=== PATIENT | female | born 1990 | race Caucasian/White ===

== ENCOUNTER 2018-11-25 18:36 | Emergency (ER) | payer OTHER, SELFPAY ==
[2018-11-25 18:38] VITALS: BP 170/106; PULSE 94; RESP 20; TEMP 36.6; O2SAT 100; BMI 28.1
--- NOTE | 2018-11-25 19:53 | ED_ITS ---
HPI - Extremity Injury (Upper) <ABIGAIL Zaman - Last Filed: 11/25/18 22:32> General Chief Complaint: Extremity Injury, Upper Stated Complaint: SPLINTER RIGHT HAND Time Seen by Provider: 11/25/18 18:45 Source: patient Mode of arrival: ambulatory Limitations: no limitations History of Present Illness HPI narrative: 28-year-old healthy female that is in everyday smoker here for complaint of pain to her right hand. She states that she had a sliver to her right middle finger a couple of days ago and she woke up today was that she has swelling and redness to her fingers and to her right thumb. She reports that the redness and swelling has resolved somewhat since this morning. She denies any fevers. She states she has had a small amount of a purulent drainage from the splinter area. She states that the splinter might or might not be there at this point as she cannot see it. She denies any other concerns or complaints at this timeframe. Related Data Previous Rx's Medication Instructions Recorded clindamycin HCl 300 mg PO QID #28 cap 11/25/18 Allergies Allergy/AdvReac Type Severity Reaction Status Date / Time No Known Drug Allergies Allergy Verified 11/25/18 19:56 Review of Systems <ABIGAIL Zaman - Last Filed: 11/25/18 22:32> Eyes Denies change in vision, Denies eye discharge, Denies irritation and Denies loss of vision ENT Ears, Nose, Mouth, and Throat: Denies change in voice, Denies neck pain and Denies sore throat Cardiovascular Denies chest pain, Denies irregular heart rhythm, Denies lightheadedness, Denies palpitations, Denies dyspnea, Denies dyspnea on exertion and Denies orthopnea Respiratory Denies cough, Denies dyspnea, Denies dyspnea on exertion and Denies wheezing Gastrointestinal Gastrointestinal: Denies abdominal pain, Denies change in bowel habits, Denies diarrhea, Denies nausea and Denies vomiting Genitourinary Denies hematuria, Denies flank pain, Denies urinary incontinence and Denies urinary urgency Musculoskeletal Denies neck pain Comments: Redness and swelling to right hand Integumentary/Breasts Denies pruritus, Denies erythema, Denies rash and Denies wounds Neurologic Denies confusion and Denies loss of vision Psychiatric Denies anxiety, Denies confusion, Denies depression, Denies homicidal ideation and Denies suicidal ideation Endocrine Denies palpitations Hematologic/Lymphatic Denies easy bruising Allergic/Immunologic Denies wheezing Exam <ABIGAIL Zaman - Last Filed: 11/25/18 22:32> Initial Vital Signs Initial Vital Signs: Vital Signs Temperature 97.8 F 11/25/18 18:38 Pulse Rate 94 H 11/25/18 18:38 Respiratory Rate 20 11/25/18 18:38 Blood Pressure 170/106 H 11/25/18 18:38 Pulse Oximetry 100 11/25/18 18:38 Const General: cooperative and well developed Nutritional Appearance: well nourished Orientation: alert, awake, oriented x3 and not confused HENNV Mouth: oral mucosae normal and moist mucous membranes Eyes Conjunctivae: conjunctivae normal Sclera: sclerae normal Pupils: PERRL EOM: EOM intact bilaterally Neck Neck: midline deformity Resp Effort & Inspection: normal respiratory effort, able to speak in complete sentences, no respiratory distress and no use of accessory muscles Auscultation: clear to auscultation bilaterally, no rales, no rhonchi and no wheezes Cardio Rate: regular rate Rhythm: regular rhythm Heart Sounds: no click, no gallops, no murmurs and no rubs Pulses: normal peripheral pulses Back/Spine/Pelvis Back: No CVA tenderness Cervical Spine: cervical ROM normal and No pain with cervical ROM Thoracic/Lumbar Spine: thoracic and lumbar spine normal to inspection Skin General: no rashes or lesions noted, No jaundice and No petechiae Neuro General: alert, oriented x3, gait normal and no focal motor deficits Speech: speech normal Extrem Other: No significant erythema or swelling is seen to the right hand at this timeframe. 3 mm puncture wound to the right distal middle finger no splinter is appreciated on exam. Distal CMS is intact. Full range of motion of the right hand. Distal cap refill less than 2 sec. <Taylor Valdez DO - Last Filed: 11/26/18 00:07> Initial Vital Signs Initial Vital Signs: Vital Signs Temperature 97.8 F 11/25/18 18:38 Pulse Rate 94 H 11/25/18 18:38 Respiratory Rate 20 11/25/18 18:38 Blood Pressure 170/106 H 11/25/18 18:38 Pulse Oximetry 100 11/25/18 18:38 Course <ABIGAIL Zaman - Last Filed: 11/25/18 22:32> Orders Ordered: Discontinued Medications Diphtheria/Tetanus/Acell Pertussis (Adacel) 0.5 ml IM .ONCE ONE Stop: 11/25/18 19:49 Last Admin: 11/25/18 19:54 Dose: 0.5 ml Vital Signs - 8 hr 11/25/18 18:38 11/25/18 20:04 Temperature 97.8 F Pulse Rate 94 H 82 Respiratory Rate 20 18 Blood Pressure 170/106 H 155/88 H Pulse Oximetry 100 99 <Taylor Valdez DO - Last Filed: 11/26/18 00:07> Orders Ordered: Discontinued Medications Diphtheria/Tetanus/Acell Pertussis (Adacel) 0.5 ml IM .ONCE ONE Stop: 11/25/18 19:49 Last Admin: 11/25/18 19:54 Dose: 0.5 ml Vital Signs - 8 hr 11/25/18 18:38 11/25/18 20:04 Temperature 97.8 F Pulse Rate 94 H 82 Respiratory Rate 20 18 Blood Pressure 170/106 H 155/88 H Pulse Oximetry 100 99 MDM - Extremity Injury (Upper) <ABIGAIL Zaman - Last Filed: 11/25/18 22:32> MDM Narrative Medical decision making narrative: Patient states no recent tetanus shot last tetanus was when she was a child. Her tetanus is updated in the emergency room today. No significant infection appreciated on exam at this time however due to patient's subjective of red swollen painful hands this morning will empirically treat for infection to the right hand status post her sliver with clindamycin. Follow up with primary care provider in the next few days for re- evaluation to ensure symptoms are resolving. Use [id number] Tylenol or Motrin as needed for any discomfort. For any worsening symptoms return to the emergency room. Discharge Plan Departure Patient Disposition: Home Clinical Impression: Infected sliver of skin of finger Discharge Date/Time: 11/25/18 20:05 Interventions: ED Discharge Assessment Last Done: 11/25/18 20:04 Instructions: DI for Hand Pain Activity Restrictions/Additional Instructions: Right hand did not appear to be infected on exam. No sliver was appreciated on exam. However due to reported purulent drainage and redness to the hand an antibiotic called clindamycin is prescribed use as directed. Use over-the- counter ibuprofen as needed for any discomfort. Dress wound daily with bacitracin dressing until healed. Follow up with primary care provider next few days for re-evaluation. Return emergency room for any worsening symptoms. Prescriptions: New clindamycin HCl 300 mg capsule 300 mg PO QID Qty: 28 RF: 0 Referrals: [facility] [Provider Group] <Taylor Valdez DO - Last Filed: 11/26/18 00:07> Cosign ED Attending Cosignature Attestation: I was immediately available in the department for consultation. This documentation has been reviewed and I agree with assessment and plan. Supervised by Taylor Valdez DO
[2018-11-25] MEDS: TET,DIPH,PERTUSS(ACELL),VAC/PF 0.5 ML SYRINGE IM (19:54)
[2018-11-25 20:04] VITALS: BP 155/88; PULSE 82; RESP 18; O2SAT 99
== END 2018-11-25 20:05 | disposition home or self-care (01) ==
PROVIDERS: Emergency Provider Nurse Practitioner Family
DX: S60.459A Superficial foreign body of unspecified finger, initial encounter (principal); L08.9 Local infection of the skin and subcutaneous tissue, unspecified
CPT/HCPCS: 90471; 99282; 99283; 90715

== ENCOUNTER → 2021-11-25 08:26 | Outpatient (CLI) | payer OTHER, MEDICAID, SELFPAY ==
[2021-11-25 19:30] LABS: Alanine Aminotransferase 27 IU/L (<35); Albumin 4.2 g/dL (3.5-5.0); Albumin Globulin Ratio 1.4 (1.0-2.8); Alkaline Phosphatase 24 U/L (38-126); Aspartate Aminotransferase 28 IU/L (14-36); BUN Creatinine Ratio 15.5 (6-22); Bilirubin Total 0.7 mg/dL (0.2-1.3); Blood Urea Nitrogen 13 mg/dL (7-17); Calcium 9.7 mg/dL (8.4-10.2); Carbon Dioxide 31 mmol/L (22-32); Chloride 100 mmol/L (98-107); Estimated Glomerular Filt Rate > 60.0 mL/min (>60); Globulin 2.9 g/dL (1.7-4.1); Glucose 95 mg/dL (70-100); HEMOLYSIS < 15 (0-50); Potassium 4.1 mmol/L (3.4-5.1); Sodium 135 mmol/L (137-145); Total Protein 7.1 g/dL (6.3-8.2)
== END ==
PROVIDERS: Family Provider Family Medicine; PCP Physician Assistant; Referring Provider Physician Assistant; Visit Provider Physician Assistant
DX: I10 Essential (primary) hypertension (principal)
CPT/HCPCS: 80053; 84443

== ENCOUNTER 2022-07-07 17:02 | Emergency (ER) | payer OTHER, SELFPAY ==
[2022-07-07 17:05] VITALS: BP 168/97; PULSE 104; RESP 16; TEMP 36.9; O2SAT 100; BMI 33.0
--- NOTE | 2022-07-07 17:12 | DI.CT.S_ITS ---
PROCEDURE: CT HEAD/BRAIN WO CON INDICATIONS: loss of peripheral vision on R side of R eye x 3 days TECHNIQUE: Noncontrast 4.5 mm thick angled axial sections acquired from the foramen magnum to the vertex, with coronal and sagittal reformats. For radiation dose reduction, the following was used: automated exposure control, adjustment of mA and/or kV according to patient size. COMPARISON: None. FINDINGS: Image quality: Excellent. CSF spaces: Basal cisterns are patent. No extra-axial fluid collections. Ventricles are normal in size and shape. Brain: No midline shift. No intracranial masses or hemorrhage. Dunn-white matter interface is normal. Skull and face: Calvarium and visualized facial bones are intact, without suspicious lesions. Sinuses: Visualized sinuses and mastoids are clear. IMPRESSION: Normal CT of the brain Approved by: Jose Craft M.D. on 07/07/2022 at 16:57
--- NOTE | 2022-07-07 17:28 | PC.NURSE ---
Pt reports recently going through detox and finishing at a facility on Wednesday. Pt woke up on Wednesday with loss of peripheral vision in her right eye. No change since Wednesday. Pt reports cardiac arrest in 2013 due to drug overdose.
[2022-07-07 17:30] VITALS: PULSE 99; RESP 22; O2SAT 100
[2022-07-07 17:31] VITALS: BP 157/95; PULSE 99; RESP 15; O2SAT 100
[2022-07-07 18:00] VITALS: PULSE 98; O2SAT 100
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
[2022-07-07 18:40] LABS: Add Manual Diff / Slide Review NO; Basophils Absolute Auto 0 /uL (0-100); Basophils Percent Auto 0.4 % (0-2); Eosinophils Absolute Auto 200 /uL (0-450); Eosinophils Percent Auto 2.3 % (2-4); Hematocrit 40.2 % (36-46); Hemoglobin 14.3 g/dL (12.0-16.0); Lymphocytes Absolute Auto 1800 /uL (1100-4500); Lymphocytes Percent Auto 27.7 % (25-40); Mean Corpuscular HGB Conc 35.7 % (30-36); Mean Corpuscular Hemoglobin 31.5 PG (26-34); Mean Corpuscular Volume 88.1 fL (80-100); Monocytes Absolute Auto 400 /uL (0-900); Monocytes Percent Auto 6.9 % (3-14); Neutrophils Absolute Auto 4100 /uL (1500-7000); Neutrophils Percent Auto 62.7 % (50-75); Platelet Count 270 X10^3/uL (150-400); Red Blood Cell Count 4.56 X10^6/uL (4.0-5.2); Red Cell Distribution Width 12.6 % (11.6-14.8); White Blood Cell Count 6.5 X10^3/uL (4.5-11.0)
[2022-07-07 18:46] LABS: INR 1.1 (0.9-1.3); Prothrombin Time 12.8 SECONDS (10.1-12.7)
[2022-07-07 18:49] LABS: PTT Partial Thromboplastin Tim 22 SECONDS (26-36)
[2022-07-07 19:13] LABS: UR Morphine/Opiate cutoff 300 Negative (Negative); Ur Creatinine Normal (Normal); Ur Specific Gravity Normal (Normal); Urine Cocaine Negative (Negative); Urine Tetrahydrocannabinol Positive (Negative); Urine pH Normal (Normal)
[2022-07-07 19:14] LABS: Urine Amphetamines Positive (Negative); Urine Barbiturates Negative (Negative); Urine Benzodiazepines Negative (Negative); Urine MDMA Positive (Negative); Urine Methadone Negative (Negative); Urine Methamphetamines Positive (Negative); Urine Oxycodone Negative (Negative); Urine Phencyclidine Negative (Negative); Urine Tricyclic Antidepressant Negative (Negative)
[2022-07-07 19:16] LABS: Bacteria Urine Many (>30); Culture Indicated Urine Cult Not Indicated; RBC Urine None Seen (0-5/HPF); Squamous Epithelial Cell Urine 0-1 /HPF (0-5/HPF); WBC Urine 0-1/HPF (0-5/HPF)
[2022-07-07 19:57] LABS: COVID19 -Nasal RAPID Negative (Negative)
[2022-07-07 20:03] LABS: Alanine Aminotransferase 26 IU/L (<35); Albumin Globulin Ratio 1.3 (1.0-2.8); Aspartate Aminotransferase 23 IU/L (14-36); BUN Creatinine Ratio 20.7 (6-22); Bilirubin Total 0.5 mg/dL (0.2-1.3); Blood Urea Nitrogen 17 mg/dL (7-17); Calcium 8.9 mg/dL (8.4-10.2); Carbon Dioxide 30 mmol/L (22-32); Chloride 102 mmol/L (98-107); Creatine Kinase 82 U/L (30-135); Estimated Glomerular Filt Rate > 60 mL/min (>60); Glucose 101 mg/dL (70-100); HEMOLYSIS < 15 (0-50); Potassium 4.2 mmol/L (3.4-5.1); Sodium 138 mmol/L (137-145)
[2022-07-07 20:06] LABS: Alkaline Phosphatase < 20 U/L (38-126)
[2022-07-07 20:12] VITALS: BP 148/102; PULSE 97; O2SAT 100
[2022-07-07 20:14] LABS: Troponin I < 0.012 ng/mL (0.01-0.034)
== END 2022-07-07 20:19 | disposition home or self-care (01) ==
PROVIDERS: Family Medicine Addiction Medicine; Emergency Provider Emergency Medicine; Family Provider Family Medicine; PCP Physician Assistant
DX: H33.21 Serous retinal detachment, right eye (principal); I10 Essential (primary) hypertension; Z20.822 Contact with and (suspected) exposure to COVID-19
CPT/HCPCS: 36415; 70450; 80053; 80305; 81003; 81015; 82550; 83735; 84484; 85025; 85610; 85730; 87635; 93005; 93010; 99284; C9803

== ENCOUNTER 2022-10-01 19:08 | Observation (INO) | payer OTHER, MEDICAID, SELFPAY ==
[2022-10-01 19:13] VITALS: BP 140/97; PULSE 113; RESP 16; TEMP 36.6; O2SAT 99; BMI 32.2
[2022-10-01 19:42] LABS: Add Manual Diff / Slide Review NO; Basophils Absolute Auto 0 /uL (0-100); Basophils Percent Auto 0.2 % (0-2); Eosinophils Absolute Auto 0 /uL (0-450); Eosinophils Percent Auto 0.2 % (2-4); Hematocrit 51.2 % (36-46); Hemoglobin 17.5 g/dL (12.0-16.0); Lymphocytes Absolute Auto 1400 /uL (1100-4500); Lymphocytes Percent Auto 10.2 % (25-40); Mean Corpuscular HGB Conc 34.1 % (30-36); Mean Corpuscular Hemoglobin 30.9 PG (26-34); Mean Corpuscular Volume 90.6 fL (80-100); Monocytes Absolute Auto 500 /uL (0-900); Monocytes Percent Auto 3.7 % (3-14); Neutrophils Absolute Auto 11600 /uL (1500-7000); Neutrophils Percent Auto 85.7 % (50-75); Platelet Count 322 X10^3/uL (150-400); Red Blood Cell Count 5.65 X10^6/uL (4.0-5.2); Red Cell Distribution Width 12.9 % (11.6-14.8); White Blood Cell Count 13.6 X10^3/uL (4.5-11.0)
[2022-10-01 19:46] LABS: Alanine Aminotransferase 29 IU/L (<35); Albumin 4.6 g/dL (3.5-5.0); Albumin Globulin Ratio 1.3 (1.0-2.8); Alkaline Phosphatase 33 U/L (38-126); Aspartate Aminotransferase 26 IU/L (14-36); BUN Creatinine Ratio 14.9 (6-22); Bilirubin Total 0.8 mg/dL (0.2-1.3); Blood Urea Nitrogen 11 mg/dL (7-17); Calcium 9.2 mg/dL (8.4-10.2); Carbon Dioxide 31 mmol/L (22-32); Chloride 94 mmol/L (98-107); Estimated Glomerular Filt Rate > 60 mL/min (>60); Globulin 3.6 g/dL (1.7-4.1); Glucose 185 mg/dL (70-100); HEMOLYSIS 18 (0-50); Lipase 32 U/L (23-300); Potassium 3.7 mmol/L (3.4-5.1); Sodium 135 mmol/L (137-145); Total Protein 8.2 g/dL (6.3-8.2)
[2022-10-01 21:28] VITALS: PULSE 108; O2SAT 100
[2022-10-01 21:29] VITALS: BP 175/101; PULSE 104; O2SAT 100
[2022-10-01 21:30] VITALS: BP 177/103; PULSE 92; O2SAT 100
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
--- NOTE | 2022-10-01 22:06 | DI.CT.S_ITS ---
PROCEDURE: CT ABDOMEN PELVIS W CON INDICATIONS: abdominal pain with BRB per rectum TECHNIQUE: After the administration of IV contrast, axial sections were acquired from the lung bases to the pubic symphysis. Coronal and sagittal reformats were performed. For radiation dose reduction, the following was used: automated exposure control, adjustment of mA and/or kV according to patient size. COMPARISON: None. FINDINGS: Image quality: Excellent. Lung bases: Unremarkable. Heart: Heart is normal in size. ABDOMEN: Liver: No mass lesion. Gallbladder: Within normal limits without calcified gallstones. Biliary ducts: No biliary ductal dilatation. Pancreas: Unremarkable. Spleen: Normal in size. Adrenal Glands: There is mild thickening of the left adrenal gland. Kidneys and Ureters: No hydronephrosis. Stomach and Bowel: Stomach and small bowel loops are normal in caliber and wall thickness. The appendix is normal in appearance. There is segmental wall thickening involving the mid to distal transverse colon as well as the descending colon with pericolonic fat stranding and mucosal enhancement consistent with a colitis. Peritoneum: No abnormal intraperitoneal fluid. No free air. Ventral Wall: No hernia. Abdominal Nodes: No retroperitoneal or mesenteric adenopathy by size criteria. Vessels: Aorta and inferior vena cava are normal in size. PELVIS: Pelvic Organs: Unremarkable. Bladder: There is mild concentric wall thickening of the bladder but evaluation is limited by incomplete distention.. Pelvic Nodes: No enlarged lymph nodes. Miscellaneous: No inguinal hernias are seen. Bones: Visualized osseous structures demonstrate no suspicious focal lesions. IMPRESSION: 1. Segmental colonic wall thickening involving the mid transverse colon extending through the descending colon consistent with a likely infectious or inflammatory colitis. Given the length of involvement, ischemic colitis or neoplasm are less likely. Recommend correlation clinically and if indicated follow-up evaluation with colonoscopy. 2. Mild bladder wall thickening suggestive of a cystitis. Recommend correlation with urinalysis. Dictated by: Vinay Hanks M.D. on 10/02/2022 at 0:51 Approved by: Vinay Hanks M.D. on 10/02/2022 at 0:54
[2022-10-01] MEDS: ONDANSETRON 4 MG/2 ML INJ IV (22:13)
[2022-10-01] MEDS: SODIUM CHLORIDE 0.9% 1,000 ML 1000 ML IV (22:13)
[2022-10-01] MEDS: HYDROMORPHONE 0.5 MG INJ IV (22:13)
[2022-10-01 22:54] LABS: Lactate (Lactic Acid) 1.1 mmol/L (0.7-2.1)
[2022-10-02 00:16] LABS: Bacteria Urine Many (>30); RBC Urine 0-1/HPF (0-5/HPF); Squamous Epithelial Cell Urine 1-5 /HPF (0-5/HPF); WBC Urine 30-100/HPF (0-5/HPF)
[2022-10-02] MEDS: HYDROMORPHONE 0.5 MG INJ IV ×2 (01:22→13:50)
[2022-10-02] MEDS: SODIUM CHLORIDE 0.9% 1,000 ML 1000 ML IV (01:35)
[2022-10-02] MEDS: cefTRIAXone 2,000 MG in SODIUM CHLORIDE 0.9% 100 ML 200 MG IV (01:35)
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
[2022-10-02] MEDS: metroNIDAZOLE 500 MG/100 ML PIGGYBACK 100 MG IV ×2 (02:16→08:21)
[2022-10-02] MEDS: SODIUM CHLORIDE 0.9% 1,000 ML 150 ML IV (02:41)
[2022-10-02 03:39] VITALS: BP 121/75; PULSE 75; RESP 14; O2SAT 98
[2022-10-02] MEDS: HYDROMORPHONE 1 MG INJ IV (04:36)
[2022-10-02] MEDS: ACETAMINOPHEN 325 MG TABLET 650 MG PO (06:51)
[2022-10-02 09:34] VITALS: PULSE 89; O2SAT 100
[2022-10-02 09:35] VITALS: BP 154/84; PULSE 91; O2SAT 100
[2022-10-02 09:38] VITALS: BP 154/84; PULSE 95; O2SAT 97
[2022-10-02 09:41] VITALS: RESP 12; TEMP 36.6
[2022-10-02 11:18] VITALS: BP 154/94; PULSE 95
[2022-10-02] MEDS: LOSARTAN 25 MG TABLET PO (11:18)
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
== END 2022-10-02 14:57 | disposition home or self-care (01) ==
LOC: ED 10-02 01:31 → AC 10-02 01:56
PROVIDERS: Admitting Provider Family Medicine; Emergency Provider Emergency Medicine; Family Provider Family Medicine; PCP Physician Assistant; Referring Provider Emergency Medicine; Visit Provider Family Medicine
DX: K52.9 Noninfective gastroenteritis and colitis, unspecified (principal); E86.0 Dehydration; N39.0 Urinary tract infection, site not specified; B96.89 Other specified bacterial agents as the cause of diseases classified elsewhere; F17.210 Nicotine dependence, cigarettes, uncomplicated; Z20.822 Contact with and (suspected) exposure to COVID-19
CPT/HCPCS: 36415; 74177; 80053; 81003; 81015; 81025; 83605; 83690; 85025; 87040; 87077; 87086; 87186; 93005; 96361; 96365; 96366; 96367; 96375; 96376; 99284; G0378; J0696; J1170; J2405; Q9967

== ENCOUNTER → 2022-10-13 14:15 | Outpatient (CLI) | payer OTHER, MEDICAID, SELFPAY | PROVIDERS: Family Provider Family Medicine; PCP Physician Assistant; Visit Provider Physician Assistant | DX: J02.9 Acute pharyngitis, unspecified (principal) | CPT/HCPCS: 87070; 87880 ==

== ENCOUNTER → 2023-04-21 11:43 | Outpatient (CLI) | payer OTHER, MEDICAID, SELFPAY ==
[2023-04-21 13:02] LABS: Add Manual Diff / Slide Review NO; Basophils Absolute Auto 0 /uL (0-100); Basophils Percent Auto 0.2 % (0-2); Eosinophils Absolute Auto 100 /uL (0-450); Eosinophils Percent Auto 0.7 % (2-4); Hematocrit 41.1 % (36-46); Hemoglobin 14.5 g/dL (12.0-16.0); Lymphocytes Absolute Auto 1300 /uL (1100-4500); Lymphocytes Percent Auto 13.4 % (25-40); Mean Corpuscular HGB Conc 35.4 % (30-36); Mean Corpuscular Hemoglobin 31.7 PG (26-34); Mean Corpuscular Volume 89.6 fL (80-100); Monocytes Absolute Auto 600 /uL (0-900); Monocytes Percent Auto 5.7 % (3-14); Neutrophils Absolute Auto 7900 /uL (1500-7000); Platelet Count 252 X10^3/uL (150-400); Red Blood Cell Count 4.58 X10^6/uL (4.0-5.2); White Blood Cell Count 9.8 X10^3/uL (4.5-11.0)
[2023-04-21 13:33] LABS: Alanine Aminotransferase 25 IU/L (<35); Albumin Globulin Ratio 1.2 (1.0-2.8); Alkaline Phosphatase 25 U/L (38-126); Aspartate Aminotransferase 17 IU/L (14-36); BUN Creatinine Ratio 14.8 (6-22); Bilirubin Total 0.2 mg/dL (0.2-1.3); Blood Urea Nitrogen 8 mg/dL (7-17); Calcium 8.9 mg/dL (8.4-10.2); Carbon Dioxide 26 mmol/L (22-32); Chloride 101 mmol/L (98-107); Estimated Glomerular Filt Rate > 60 mL/min (>60); Globulin 3.3 g/dL (1.7-4.1); Glucose 88 mg/dL (70-100); HEMOLYSIS < 15 (0-50); Potassium 4.1 mmol/L (3.4-5.1); Sodium 134 mmol/L (137-145); Total Protein 7.3 g/dL (6.3-8.2)
[2023-04-21 17:54] LABS: HIV 1 & 2 Ab/Ag 4th Gen Combo NEGATIVE (NEGATIVE); Hep C Virus Ab w/Reflex Quant NEGATIVE s/c (NEGATIVE); Hepatitis B Surface Antigen NEGATIVE s/c (NEGATIVE); Rubella Antibody IgG 45.8 IU/mL (>15)
[2023-04-22 07:17] LABS: RPR Screen Non Reactive (Non Reactive)
[2023-04-22 08:26] LABS: Varicella IgG Antibody 2070 index (Immune >165)
== END ==
PROVIDERS: Family Provider Family Medicine; PCP Family Medicine; Referring Provider Specialist; Visit Provider Specialist
DX: O16.1 Unspecified maternal hypertension, first trimester (principal); Z3A.09 9 weeks gestation of pregnancy
CPT/HCPCS: 36415; 80053; 80055; 86787; 86803; 86850; 86900; 86901; 87086; 87389

== ENCOUNTER → 2023-05-28 15:24 | Outpatient (CLI) | payer OTHER, MEDICAID, SELFPAY ==
--- NOTE | 2023-05-28 15:25 | DI.US.S_ITS ---
PROCEDURE: US OB >= 14 WEEKS FETUS INDICATIONS: ANATOMY SCAN OUTSIDE/PRIOR DATING DATA: Last menstrual period (LMP): 12/26/2022. LMP-based estimated date of delivery (FRANCISCO): 10/02/2023. First dating scan (date and location): 03/05/2023. Estimated date of delivery (FRANCISCO) from first dating scan: 10/06/2023. The calculations are made using the menstrual FRANCISCO of 10/02/2023. TECHNIQUE: Real-time scanning was performed of the fetus, with image documentation and biometric measurements. COMPARISON: [facility], , OB <= 14 WEEKS FETUS, 03/05/2023, 9:55. FINDINGS: General: A single live intrauterine gestation is present. Presentation: Transverse. Placenta: Placental position is posterior/right , without previa. Amniotic fluid index: 12.9 cm, normal range is 5-24 cm. Single deepest vertical pocket is 3.5 cm. heart rate: 139 beats per minute. Maternal cervical canal: Not measured. biometrics: Biparietal diameter: 5.1 cm equals 20 weeks 4 days Head circumference: 19.5 cm equals 21 weeks 5 days Abdominal circumference: 17.3 cm equals 22 weeks 2 days Femur length: 3.6 cm equals 21 weeks 4 days Clinically estimated gestational age: 21 weeks 6 days Composite gestational age from present scan: 21 weeks 6 days Estimated weight and percentile: 462 g. 48th percentile Anatomic survey: Neuro: Ventricles are non-dilated at less than 10 mm. Cisterna magna is normal at 3-11 mm. Cerebellum is normal in size and morphology. Face: Nose and lips, facial profile are normal. Spine: No evidence for spina bifida. Heart: 4-chambered heart is present, with normal ventricular outflow tracts. Diaphragm: Diaphragm is intact. Stomach: Left-sided stomach is present. Kidneys: No hydronephrosis. Normal is less than 5 mm in 2nd trimester, less than 7 mm in 3rd trimester. Cord: 3-vessel cord has orthotopic insertion. Bladder: Normal in size. Extremities: All 4 extremities identified. IMPRESSION: No anatomic abnormalities are identified. No significant discrepancy is found between the estimated gestational age based on these images and the estimated gestational age based upon the given date of the last menstrual period. We strive to produce accurate, complete, and clear reports of imaging services. To assist us in improving patient care, this report was composed using standard report templates and voice recognition software. Therefore, it may contain abnormal punctuation, insertions and/or omissions. Occasional wrong-word or sound-alike substitutions may occur. Though we review the report and make efforts to correct it, we do recommend that the report be read carefully in proper context to recognize any text inaccuracies. Dictated by: Rivas Dean M.D. on 05/28/2023 at 20:34 Approved by: Rivas Dean M.D. on 05/28/2023 at 20:39
[2023-05-31 12:38] LABS: AFP, Serum 64.1 ng/mL (.); Estriol, Free 1.95 ng/mL (.); Inhibin A, Dimeric 290.78 pg/mL (.); Inhibin A, MoM 1.51 (.); Maternal Ethnicity Caucasian (.); Maternal Weight 223 lbs (.); Number of Fetuses No (.); OSBR Risk 1 IN 9231 (.); Results Report (.); Test Results *Screen Negative* (.); hCG, MoM 1.33 (.); hCG, Serum 25117 mIU/mL (.)
== END ==
PROVIDERS: Specialist; Family Provider Family Medicine; PCP Family Medicine; Referring Provider Obstetrics & Gynecology; Visit Provider Obstetrics & Gynecology
DX: Z34.82 Encounter for supervision of other normal pregnancy, second trimester (principal); Z3A.21 21 weeks gestation of pregnancy
CPT/HCPCS: 36415; 76811; 82105; 82677; 84702; 86336

== ENCOUNTER → 2023-07-02 12:08 | Outpatient (CLI) | payer OTHER, MEDICAID, SELFPAY ==
[2023-07-02 13:34] LABS: Hematocrit 36.7 % (36-46); Hemoglobin 13.1 g/dL (12.0-16.0)
[2023-07-02 14:45] LABS: GTT (PREG) 1 Hour PP 50gm Dose 139 mg/dL (76-139)
== END ==
PROVIDERS: Family Provider Family Medicine; PCP Family Medicine; Referring Provider Specialist; Visit Provider Specialist
DX: Z34.82 Encounter for supervision of other normal pregnancy, second trimester (principal); Z3A.26 26 weeks gestation of pregnancy
CPT/HCPCS: 36415; 82950; 85014; 85018

== ENCOUNTER → 2023-09-03 14:39 | Outpatient (CLI) | payer OTHER, MEDICAID, SELFPAY ==
[2023-09-05 11:01] LABS: Strep Grp B PCR NEG for Grp B Strep
== END ==
PROVIDERS: Family Provider Family Medicine; PCP Family Medicine; Visit Provider Obstetrics & Gynecology
DX: Z34.83 Encounter for supervision of other normal pregnancy, third trimester (principal); Z3A.35 35 weeks gestation of pregnancy
CPT/HCPCS: 87653

== ENCOUNTER 2023-09-03 15:48 | Outpatient (CLI) | payer OTHER, MEDICAID, SELFPAY ==
[2023-09-03 16:26] VITALS: BP 140/86; PULSE 86
[2023-09-03] MEDS: LABETALOL 100 MG TABLET 300 MG PO (16:26)
[2023-09-03 16:30] LABS: Add Manual Diff / Slide Review NO; Basophils Absolute Auto 0 /uL (0-100); Basophils Percent Auto 0.5 % (0-2); Eosinophils Absolute Auto 100 /uL (0-450); Eosinophils Percent Auto 1.2 % (2-4); Hematocrit 37.8 % (36-46); Hemoglobin 13.4 g/dL (12.0-16.0); Lymphocytes Absolute Auto 1500 /uL (1100-4500); Lymphocytes Percent Auto 15.8 % (25-40); Mean Corpuscular HGB Conc 35.4 % (30-36); Mean Corpuscular Volume 90.4 fL (80-100); Monocytes Absolute Auto 800 /uL (0-900); Monocytes Percent Auto 8.2 % (3-14); Neutrophils Absolute Auto 6900 /uL (1500-7000); Neutrophils Percent Auto 74.3 % (50-75); Platelet Count 252 X10^3/uL (150-400); Red Blood Cell Count 4.19 X10^6/uL (4.0-5.2); Red Cell Distribution Width 12.8 % (11.6-14.8); White Blood Cell Count 9.3 X10^3/uL (4.5-11.0)
[2023-09-03 16:37] LABS: Alanine Aminotransferase 24 IU/L (<35); Albumin 3.4 g/dL (3.5-5.0); Albumin Globulin Ratio 1.1 (1.0-2.8); Alkaline Phosphatase 103 U/L (38-126); Aspartate Aminotransferase 17 IU/L (14-36); BUN Creatinine Ratio 15.6 (6-22); Bilirubin Total 0.2 mg/dL (0.2-1.3); Blood Urea Nitrogen 7 mg/dL (7-17); Calcium 9.3 mg/dL (8.4-10.2); Carbon Dioxide 22 mmol/L (22-32); Chloride 105 mmol/L (98-107); Estimated Glomerular Filt Rate > 60 mL/min (>60); Globulin 3.2 g/dL (1.7-4.1); Glucose 90 mg/dL (70-100); HEMOLYSIS < 15 (0-50); Potassium 3.8 mmol/L (3.4-5.1); Sodium 132 mmol/L (137-145); Total Protein 6.6 g/dL (6.3-8.2)
[2023-09-03 16:38] LABS: Uric Acid 2.9 mg/dL (2.5-6.2)
[2023-09-03 16:57] LABS: Creatinine Urine Random 115.3 mg/dL; Protein (Total) Urine Random 10 mg/dL (0-12); Protein Creatinine Ratio Urine 0.08 GRAM/24H
== END 2023-09-03 17:28 | disposition home or self-care (01) ==
LOC: LABOR 16:24 → OB 09-07 13:41
PROVIDERS: Family Provider Family Medicine; PCP Family Medicine; Referring Provider Obstetrics & Gynecology; Visit Provider Obstetrics & Gynecology
DX: O13.3 Gestational [pregnancy-induced] hypertension without significant proteinuria, third trimester (principal); O99.333 Smoking (tobacco) complicating pregnancy, third trimester; F19.10 Other psychoactive substance abuse, uncomplicated; O99.323 Drug use complicating pregnancy, third trimester; Z3A.35 35 weeks gestation of pregnancy; F17.200 Nicotine dependence, unspecified, uncomplicated; Z34.83 Encounter for supervision of other normal pregnancy, third trimester
CPT/HCPCS: 59025; 80053; 82570; 84156; 84550; 85025; 87653; G0378; G0379

== ENCOUNTER → 2023-09-10 14:48 | Outpatient (CLI) | payer OTHER, MEDICAID, SELFPAY ==
--- NOTE | 2023-09-10 14:49 | DI.US.S_ITS ---
PROCEDURE: US OB LIMITED INDICATIONS: Size is greater than dates OUTSIDE/PRIOR DATING DATA: Last menstrual period (LMP): 12/26/2022. LMP-based estimated date of delivery (FRANCISCO): 10/02/2023. First dating scan (date and location): 03/05/2023. Estimated date of delivery (FRANCISCO) from first dating scan: 10/06/2023. The calculations are made using the working FRANCISCO of 10/02/2020. TECHNIQUE: Real-time scanning was performed of the fetus, with image documentation and COMPARISON: [facility], , US OB >= 14 WEEKS FETUS, 05/28/2023, 15:35. [facility], , US OB <= 14 WEEKS FETUS, 03/05/2023, 9:55. FINDINGS: General: A single living intrauterine gestation is present. Presentation: Vertex. Placenta: Placental position is posterior , without previa. Amniotic fluid index: 12.2 cm, normal range is 5-24 cm. Single deepest vertical pocket is 4.8 cm. heart rate: 182 beats per minute. Maternal cervical canal: Not visualized. biometrics: Biparietal diameter: 36 weeks 2 days Head circumference: 38 weeks 0 day Abdominal circumference: 38 weeks 0 day Femur length: 37 weeks 1 day Clinically estimated gestational age: 36 weeks 6 days Composite gestational age from present scan: 37 weeks 3 days. Estimated weight and percentile: 3260 g; 75% for gestational age. IMPRESSION: 1. A single living intrauterine gestation with appropriate interval growth. 2. weight is 75% for gestational age. 3. Fetus in vertex position. 4. tachycardia with heart rate 182 BPM. Recommend clinical follow-up. We strive to produce accurate, complete, and clear reports of imaging services. To assist us in improving patient care, this report was composed using standard report templates and voice recognition software. Therefore, it may contain abnormal punctuation, insertions and/or omissions. Occasional wrong-word or sound-alike substitutions may occur. Though we review the report and make efforts to correct it, we do recommend that the report be read carefully in proper context to recognize any text inaccuracies. Dictated by: Ashley Adair M.D. on 09/10/2023 at 16:04 Approved by: Ashley Adair M.D. on 09/10/2023 at 16:09
== END ==
PROVIDERS: Family Provider Family Medicine; PCP Family Medicine; Referring Provider Obstetrics & Gynecology; Visit Provider Obstetrics & Gynecology
DX: O26.843 Uterine size-date discrepancy, third trimester (principal); O16.3 Unspecified maternal hypertension, third trimester; Z3A.37 37 weeks gestation of pregnancy
CPT/HCPCS: 36415; 76815; 80053; 85025

== ENCOUNTER → 2023-09-10 17:13 | Outpatient (CLI) | payer OTHER, MEDICAID, SELFPAY ==
[2023-09-10 17:33] LABS: Add Manual Diff / Slide Review NO; Basophils Absolute Auto 0 /uL (0-100); Basophils Percent Auto 0.2 % (0-2); Eosinophils Absolute Auto 100 /uL (0-450); Eosinophils Percent Auto 0.7 % (2-4); Hematocrit 38.3 % (36-46); Hemoglobin 13.3 g/dL (12.0-16.0); Lymphocytes Absolute Auto 1500 /uL (1100-4500); Lymphocytes Percent Auto 12.9 % (25-40); Mean Corpuscular HGB Conc 34.7 % (30-36); Mean Corpuscular Hemoglobin 31.4 PG (26-34); Mean Corpuscular Volume 90.7 fL (80-100); Monocytes Absolute Auto 700 /uL (0-900); Monocytes Percent Auto 6.5 % (3-14); Neutrophils Absolute Auto 9000 /uL (1500-7000); Neutrophils Percent Auto 79.7 % (50-75); Platelet Count 277 X10^3/uL (150-400); Red Blood Cell Count 4.23 X10^6/uL (4.0-5.2); Red Cell Distribution Width 12.6 % (11.6-14.8); White Blood Cell Count 11.4 X10^3/uL (4.5-11.0)
[2023-09-10 17:47] LABS: Alanine Aminotransferase 20 IU/L (<35); Albumin 3.5 g/dL (3.5-5.0); Alkaline Phosphatase 112 U/L (38-126); Aspartate Aminotransferase 17 IU/L (14-36); BUN Creatinine Ratio 12.3 (6-22); Bilirubin Total 0.4 mg/dL (0.2-1.3); Blood Urea Nitrogen 8 mg/dL (7-17); Calcium 9.3 mg/dL (8.4-10.2); Carbon Dioxide 21 mmol/L (22-32); Chloride 105 mmol/L (98-107); Estimated Glomerular Filt Rate > 60 mL/min (>60); Globulin 3.4 g/dL (1.7-4.1); Glucose 128 mg/dL (70-100); HEMOLYSIS < 15 (0-50); Potassium 3.8 mmol/L (3.4-5.1); Sodium 133 mmol/L (137-145); Total Protein 6.9 g/dL (6.3-8.2)
== END ==
PROVIDERS: Family Provider Family Medicine; PCP Family Medicine; Referring Provider Obstetrics & Gynecology; Visit Provider Obstetrics & Gynecology
DX: O16.9 Unspecified maternal hypertension, unspecified trimester (principal)
CPT/HCPCS: 36415; 80053; 85025

== ENCOUNTER 2023-09-22 17:17 | Outpatient (CLI) | payer OTHER, MEDICAID, SELFPAY | END 2023-09-22 17:55 | disposition home or self-care (01) | LOC: OB 09-30 16:03 | PROVIDERS: Family Provider Family Medicine; PCP Family Medicine; Referring Provider Obstetrics & Gynecology; Visit Provider Obstetrics & Gynecology | DX: O13.3 Gestational [pregnancy-induced] hypertension without significant proteinuria, third trimester (principal); Z3A.38 38 weeks gestation of pregnancy | CPT/HCPCS: 59025; G0378; G0379 ==

== ENCOUNTER 2023-09-28 20:15 | Inpatient (IN) | payer OTHER, MEDICAID, SELFPAY ==
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
[2023-09-28 21:23] LABS: Add Manual Diff / Slide Review NO; Basophils Absolute Auto 0 /uL (0-100); Basophils Percent Auto 0.4 % (0-2); Eosinophils Absolute Auto 100 /uL (0-450); Hematocrit 40.2 % (36-46); Lymphocytes Absolute Auto 1900 /uL (1100-4500); Lymphocytes Percent Auto 17.2 % (25-40); Mean Corpuscular HGB Conc 34.9 % (30-36); Mean Corpuscular Hemoglobin 31.6 PG (26-34); Mean Corpuscular Volume 90.4 fL (80-100); Monocytes Absolute Auto 800 /uL (0-900); Monocytes Percent Auto 7.1 % (3-14); Neutrophils Absolute Auto 8200 /uL (1500-7000); Neutrophils Percent Auto 74.3 % (50-75); Platelet Count 336 X10^3/uL (150-400); Red Blood Cell Count 4.44 X10^6/uL (4.0-5.2); Red Cell Distribution Width 12.9 % (11.6-14.8)
[2023-09-28 21:56] LABS: Aspartate Aminotransferase 21 IU/L (14-36); Blood Urea Nitrogen 10 mg/dL (7-17); Estimated Glomerular Filt Rate > 60 mL/min (>60); Uric Acid 3.2 mg/dL (2.5-6.2)
[2023-09-28] MEDS: miSOPROStoL 25 MCG TABLET 50 MCG PO (21:57)
[2023-09-29] MEDS: ZOLPIDEM 5 MG TABLET PO (01:51)
[2023-09-29 08:10] VITALS: BP 135/91; PULSE 105
[2023-09-29] MEDS: LABETALOL 100 MG TABLET 200 MG PO ×3 (08:10→21:35)
[2023-09-29 09:14] VITALS: BP 135/91; PULSE 105; TEMP 35.6
--- NOTE | 2023-09-29 09:27 | PM.OBPNLAB ---
Date/Time Date Patient Seen: 09/29/23 Time Patient Seen: 09:29 Pain Control Pain control: tolerating well Pelvic Exam Dilation (cm): 3 Effacement (%): 75 station: -2 Amniotic membrane status: Ruptured (AROM performed 920) Contractions Contractions on admission: irregular Monitor mode: External Contraction pattern: Irregular Contraction phase: Contraction Contraction intensity: Mild Status status: Category l Heart Rate Baseline: 140 Monitor Accelerations: Present Monitor Decelerations: Episodic and Variable Monitor Variability: Moderate Assessment and Plan Assessment: induction ongoing Plan: continuous present management and begin patient augmentation Comments: Anticipate . OK for DIAMOND as desired.
[2023-09-29] MEDS: OXYTOCIN PREMIX 30 UNIT/500 ML PLAST..BAG IV (09:57)
[2023-09-29] MEDS: LACTATED RINGERS 1,000 ML 100 ML IV (09:57)
[2023-09-29 11:27] LABS: UR Morphine/Opiate cutoff 300 Negative (Negative); Ur Creatinine Normal (Normal); Ur Specific Gravity Normal (Normal); Urine Amphetamines Negative (Negative); Urine Cocaine Negative (Negative); Urine Tetrahydrocannabinol Positive (Negative); Urine pH Normal (Normal)
[2023-09-29 11:28] LABS: Urine Barbiturates Negative (Negative); Urine Benzodiazepines Negative (Negative); Urine MDMA Positive (Negative); Urine Methadone Negative (Negative); Urine Methamphetamines Positive (Negative); Urine Oxycodone Negative (Negative); Urine Phencyclidine Negative (Negative); Urine Tricyclic Antidepressant Negative (Negative)
[2023-09-29 12:51] LABS: Urine N gonorrhoeae NOT DETECTED
[2023-09-29 12:58] LABS: Urine Chlamydia NOT DETECTED
--- NOTE | 2023-09-29 16:08 | PM.AN.REGBLK ---
Regional Block Pre-procedure Procedure: Continuous Lumbar Epidural for L&D Attending OB provider: Maria Del Carmen Richards PMH/ROS narrative: requesting labor epidural Labs: Hct 40.2 % (36-46) 09/28/23 20:40 Plt Count 336 X10^3/uL (150-400) 09/28/23 20:40 Medications: Current Medications Generic Name Dose Route Start Last Admin Trade Name Freq PRN Reason Stop Dose Admin Carboprost Tromethamine 250 mcg 09/28/23 20:54 Carboprost 250 Mcg/Ml Ampul IM Q90M PRN Bleeding Fentanyl 50 mcg 09/28/23 20:57 Fentanyl 100 Mcg/2 Ml Inj IV Q1H PRN Pain, Moderate (4-6) Oxytocin/Lactated Ringer's 30 unit in 500 mls @ 200 mls/hr 09/28/23 20:54 Oxytocin Premix IV CONT PRN Bleeding Protocol Tranexamic Acid 1,000 mg/ 100 mls @ 200 mls/hr 09/28/23 20:54 Sodium Chloride IV NOW PRN Bleeding Lactated Ringer's 1,000 mls @ 100 mls/hr 09/28/23 21:00 09/29/23 09:57 Lactated Ringers IV 100 mls/hr CONT JAYDEN Administration Oxytocin/Lactated Ringer's 30 unit in 500 mls @ 2 mls/hr 09/29/23 09:31 09/29/23 09:57 Oxytocin Premix IV 2 milliunit/min TITRATE JAYDEN 2 mls/hr Administration Protocol 2 MILLIUNIT/MIN Labetalol HCl 200 mg 09/28/23 21:15 09/29/23 15:21 Labetalol 100 Mg Tablet PO 200 mg TID JAYDEN Administration Lidocaine HCl 20 ml 09/28/23 20:54 Lidocaine 1% 20 Ml INJ INTRA-OP PRN Post Delivery Methylergonovine Maleate 0.2 mg 09/28/23 20:54 Methylergonovine 0.2 Mg Tablet PO Q6HR PRN Heavy Bleeding Methylergonovine Maleate 0.2 mg 09/28/23 20:54 Methylergonovine 0.2 Mg/Ml Vial IM NOW PRN Bleeding Misoprostol 800 mcg 09/28/23 20:54 Misoprostol 200 Mcg Tablet TN NOW PRN Bleeding Misoprostol 400 mcg 09/28/23 20:54 Misoprostol 200 Mcg Tablet SL NOW PRN Bleeding Misoprostol 50 mcg 09/28/23 21:00 09/28/23 21:57 Misoprostol 25 Mcg Tablet PO 50 mcg Q6H JAYDEN Administration Naloxone HCl 0.2 mg 09/28/23 20:54 Naloxone 0.4 Mg/Ml Vial IV Q2MIN PRN Opiate Reversal Ondansetron HCl 4 mg 09/28/23 20:57 Ondansetron 4 Mg/2 Ml Inj IV Q4HR PRN Nausea And Vomiting Oxytocin 10 unit 09/28/23 20:54 Oxytocin 10 Unit/Ml Vial IM NOW PRN Bleeding Zolpidem Tartrate 5 mg 09/28/23 20:57 09/29/23 01:51 Zolpidem 5 Mg Tablet PO 5 mg BEDTIME PRN Administration Sleep Allergies: Allergies Allergy/AdvReac Type Severity Reaction Status Date / Time prednisone Allergy Mild Verified 09/22/23 16:06 morphine Allergy Unknown Hives Verified 09/22/23 16:06 --: Epidural removed by Dr. Villarreal due to ineffective pain coverage. Procedure Insertion date: 09/29/23 Insertion time: 14:55 Prep/Local: betadine x3 (chlorhexadine) and 1% lidocaine (3 mL) Interspace: L1/L2 Patient position: sitting Needle: 17 gauge Tuohy Loss of resistance with: saline JENNIFER at (cm): 4 Catheter placed at SKIN (cm): 12 Catheter in SPACE (cm): 8 Initial Medications TEST DOSE time: 14:56 TEST DOSE: 1.5% lidocaine with epinephrine 1:200k (mL): 5 BOLUS DOSE time: 14:58 BOLUS DOSE (mL): 5 BOLUS DOSE med: other (1% Lido) Infusion INFUSION: 0.125% bupivacaine and with fentanyl 2 mcg/mL Initial rate (mL/hr): 8
--- NOTE | 2023-09-29 16:45 | P.PCN_ITS ---
Regional Block Pre-procedure PMH/ROS narrative: Reviewed notation and chart and patient assessed - patient c/o pain and discomfort w/ DIAMOND 1547: BP 180s/90s, HR 110, RR 24 , severe lower front groin. DIAMOND infusing, dose w/ 2mL lido 2% (+) fentanyl 100mcg in epidural , patient states intensity with contractions less as well as less duration. Mild change to cold sensation t8 through mid thigh. Following bolus, DIAMOND adjusted to from 8mL to 10mL / hour and PCEA dose increased from 4mL to 5mL, patient education. BP improved 160/88, HR 96, RR 18. 1600: Patient continuing to c/o less pain, Bupivacaine 0.25% 5mL per DIAMOND, VSS. RN re-check, progression from 2cm to 4cm during past 3 hours. Labs: Hct 40.2 % (36-46) 09/28/23 20:40 Plt Count 336 X10^3/uL (150-400) 09/28/23 20:40 Medications: Current Medications Generic Name Dose Route Start Last Admin Trade Name Freq PRN Reason Stop Dose Admin Butorphanol Tartrate 0.5 mg 09/29/23 16:03 Butorphanol 1 Mg/Ml Vial IV 09/30/23 16:04 Q3H PRN Pain, Moderate (4-6) Butorphanol Tartrate 0.5 mg 09/29/23 16:03 Butorphanol 1 Mg/Ml Vial IV 09/30/23 16:04 Q3HR PRN PRURITUS Carboprost Tromethamine 250 mcg 09/28/23 20:54 Carboprost 250 Mcg/Ml Ampul IM Q90M PRN Bleeding Diphenhydramine HCl 25 mg 09/29/23 16:03 Diphenhydramine 50 Mg/Ml Vial IV 09/30/23 16:04 Q3HR PRN PRURITUS Fentanyl 50 mcg 09/28/23 20:57 Fentanyl 100 Mcg/2 Ml Inj IV Q1H PRN Pain, Moderate (4-6) Oxytocin/Lactated Ringer's 30 unit in 500 mls @ 200 mls/hr 09/28/23 20:54 Oxytocin Premix IV CONT PRN Bleeding Protocol Tranexamic Acid 1,000 mg/ 100 mls @ 200 mls/hr 09/28/23 20:54 Sodium Chloride IV NOW PRN Bleeding Lactated Ringer's 1,000 mls @ 100 mls/hr 09/28/23 21:00 09/29/23 09:57 Lactated Ringers IV 100 mls/hr CONT [facility] Administration Oxytocin/Lactated Ringer's 30 unit in 500 mls @ 2 mls/hr 09/29/23 09:31 09/29/23 09:57 Oxytocin Premix IV 2 milliunit/min TITRATE JAYDEN 2 mls/hr Administration Protocol 2 MILLIUNIT/MIN Sodium Chloride 1,000 mls @ 100 mls/hr 09/29/23 16:15 Normal Saline 0.9% IV 09/30/23 16:04 CONT [facility] Labetalol HCl 200 mg 09/28/23 21:15 09/29/23 15:21 Labetalol 100 Mg Tablet PO 200 mg TID [facility] Administration Lidocaine HCl 20 ml 09/28/23 20:54 Lidocaine 1% 20 Ml INJ INTRA-OP PRN Post Delivery Methylergonovine Maleate 0.2 mg 09/28/23 20:54 Methylergonovine 0.2 Mg Tablet PO Q6HR PRN Heavy Bleeding Methylergonovine Maleate 0.2 mg 09/28/23 20:54 Methylergonovine 0.2 Mg/Ml Vial IM NOW PRN Bleeding Metoclopramide HCl 10 mg 09/29/23 16:15 Metoclopramide 10 Mg/2 Ml Inj IV 09/30/23 16:16 Q30MIN [facility] Misoprostol 800 mcg 09/28/23 20:54 Misoprostol 200 Mcg Tablet AR NOW PRN Bleeding Misoprostol 400 mcg 09/28/23 20:54 Misoprostol 200 Mcg Tablet SL NOW PRN Bleeding Misoprostol 50 mcg 09/28/23 21:00 09/28/23 21:57 Misoprostol 25 Mcg Tablet PO 50 mcg Q6H [facility] Administration Nalbuphine HCl 5 mg 09/29/23 16:03 Nalbuphine 20 Mg/Ml Ampul IV Q6H PRN Pruritus Naloxone HCl 0.2 mg 09/28/23 20:54 Naloxone 0.4 Mg/Ml Vial IV Q2MIN PRN Opiate Reversal Naloxone HCl 0.4 mg 09/29/23 16:03 Naloxone 0.4 Mg/Ml Vial IV Q2MIN PRN Opiate Reversal Ondansetron HCl 4 mg 09/28/23 20:57 Ondansetron 4 Mg/2 Ml Inj IV Q4HR PRN Nausea And Vomiting Ondansetron HCl 4 mg 09/29/23 17:00 Ondansetron 4 Mg/2 Ml Inj IV 09/29/23 21:01 Q4HR JAYDEN Oxycodone/Acetaminophen 1 tab 09/29/23 16:03 Oxycodone/Acetaminophen 5/325 Tablet PO 09/30/23 16:04 Q4HR PRN Pain, Moderate (4-6) Oxytocin 10 unit 09/28/23 20:54 Oxytocin 10 Unit/Ml Vial IM NOW PRN Bleeding Zolpidem Tartrate 5 mg 09/28/23 20:57 09/29/23 01:51 Zolpidem 5 Mg Tablet PO 5 mg BEDTIME PRN Administration Sleep Allergies: Allergies Allergy/AdvReac Type Severity Reaction Status Date / Time prednisone Allergy Mild Verified 09/22/23 16:06 morphine Allergy Unknown Hives Verified 09/22/23 16:06
--- NOTE | 2023-09-29 19:06 | PM.AN.REGBLK ---
Regional Block Pre-procedure Procedure: Continuous Lumbar Epidural for L&D Attending OB provider: Pa Ordaz PMH/ROS narrative: Called to replace epidural, which is unsatisfactory pain relief after troubleshooting. See prior epidural note and Preanesthesia Evaluation for additional information. ASA Class: II Labs: Hct 40.2 % (36-46) 09/28/23 20:40 Plt Count 336 X10^3/uL (150-400) 09/28/23 20:40 Medications: Current Medications Generic Name Dose Route Start Last Admin Trade Name Freq PRN Reason Stop Dose Admin Butorphanol Tartrate 0.5 mg 09/29/23 16:03 Butorphanol 1 Mg/Ml Vial IV 09/30/23 16:04 Q3H PRN Pain, Moderate (4-6) Butorphanol Tartrate 0.5 mg 09/29/23 16:03 Butorphanol 1 Mg/Ml Vial IV 09/30/23 16:04 Q3HR PRN PRURITUS Carboprost Tromethamine 250 mcg 09/28/23 20:54 Carboprost 250 Mcg/Ml Ampul IM Q90M PRN Bleeding Diphenhydramine HCl 25 mg 09/29/23 16:03 Diphenhydramine 50 Mg/Ml Vial IV 09/30/23 16:04 Q3HR PRN PRURITUS Fentanyl 50 mcg 09/28/23 20:57 Fentanyl 100 Mcg/2 Ml Inj IV Q1H PRN Pain, Moderate (4-6) Oxytocin/Lactated Ringer's 30 unit in 500 mls @ 200 mls/hr 09/28/23 20:54 Oxytocin Premix IV CONT PRN Bleeding Protocol Tranexamic Acid 1,000 mg/ 100 mls @ 200 mls/hr 09/28/23 20:54 Sodium Chloride IV NOW PRN Bleeding Lactated Ringer's 1,000 mls @ 100 mls/hr 09/28/23 21:00 09/29/23 09:57 Lactated Ringers IV 100 mls/hr CONT JAYDEN Administration Oxytocin/Lactated Ringer's 30 unit in 500 mls @ 2 mls/hr 09/29/23 09:31 09/29/23 09:57 Oxytocin Premix IV 2 milliunit/min TITRATE JAYDEN 2 mls/hr Administration Protocol 2 MILLIUNIT/MIN Sodium Chloride 1,000 mls @ 100 mls/hr 09/29/23 16:15 Normal Saline 0.9% IV 09/30/23 16:04 CONT [facility] Labetalol HCl 200 mg 09/28/23 21:15 09/29/23 15:21 Labetalol 100 Mg Tablet PO 200 mg TID [facility] Administration Lidocaine HCl 20 ml 09/28/23 20:54 Lidocaine 1% 20 Ml INJ INTRA-OP PRN Post Delivery Methylergonovine Maleate 0.2 mg 09/28/23 20:54 Methylergonovine 0.2 Mg Tablet PO Q6HR PRN Heavy Bleeding Methylergonovine Maleate 0.2 mg 09/28/23 20:54 Methylergonovine 0.2 Mg/Ml Vial IM NOW PRN Bleeding Metoclopramide HCl 10 mg 09/29/23 16:15 Metoclopramide 10 Mg/2 Ml Inj IV 09/30/23 16:16 Q30MIN [facility] Misoprostol 800 mcg 09/28/23 20:54 Misoprostol 200 Mcg Tablet MD NOW PRN Bleeding Misoprostol 400 mcg 09/28/23 20:54 Misoprostol 200 Mcg Tablet SL NOW PRN Bleeding Misoprostol 50 mcg 09/28/23 21:00 09/28/23 21:57 Misoprostol 25 Mcg Tablet PO 50 mcg Q6H [facility] Administration Nalbuphine HCl 5 mg 09/29/23 16:03 Nalbuphine 20 Mg/Ml Ampul IV Q6H PRN Pruritus Naloxone HCl 0.2 mg 09/28/23 20:54 Naloxone 0.4 Mg/Ml Vial IV Q2MIN PRN Opiate Reversal Naloxone HCl 0.4 mg 09/29/23 16:03 Naloxone 0.4 Mg/Ml Vial IV Q2MIN PRN Opiate Reversal Ondansetron HCl 4 mg 09/28/23 20:57 Ondansetron 4 Mg/2 Ml Inj IV Q4HR PRN Nausea And Vomiting Ondansetron HCl 4 mg 09/29/23 17:00 Ondansetron 4 Mg/2 Ml Inj IV 09/29/23 21:01 Q4HR [facility] Oxycodone/Acetaminophen 1 tab 09/29/23 16:03 Oxycodone/Acetaminophen 5/325 Tablet PO 09/30/23 16:04 Q4HR PRN Pain, Moderate (4-6) Oxytocin 10 unit 09/28/23 20:54 Oxytocin 10 Unit/Ml Vial IM NOW PRN Bleeding Zolpidem Tartrate 5 mg 09/28/23 20:57 09/29/23 01:51 Zolpidem 5 Mg Tablet PO 5 mg BEDTIME PRN Administration Sleep Allergies: Allergies Allergy/AdvReac Type Severity Reaction Status Date / Time prednisone Allergy Mild Verified 09/22/23 16:06 morphine Allergy Unknown Hives Verified 09/22/23 16:06 Procedure Insertion date: 09/29/23 Insertion time: 17:05 Prep/Local: 1% lidocaine Interspace: L3-4 Patient position: sitting Needle: 18 gauge Stevo Loss of resistance with: saline JENNIFER at (cm): 7 Catheter placed at SKIN (cm): 14 Catheter in SPACE (cm): 7 Insertion: Yes Paresthesia with insertion Initial Medications TEST DOSE time: 17:08 Infusion INFUSION: 0.125% bupivacaine and with fentanyl 2 mcg/mL Initial rate (mL/hr): 10 Subsequent interventions: 16:50 Removed previous catheter 16:52 Time-out 17:03 Procedure start, local given 3 ml lidocaine 1% skin wheal to L3-4 17:05 JENNIFER at 7 cm. CSE - Spinal dose given--1.6 ml of 7.5 mg/ml bupivacaine 17:05 Catheter inserted and positioned at 14 cm. 17:08 Test dose through epidural; no HR change, no blood aspirated. 17:18 Epidural pump restarted at 10 ml/hr. Pt resting comfortably with significantly reduced pain. She cannot moved her RLE but continues to have good mobility of her LLE despite the spinal dose. Warned pt that the spinal dose will wear off. Epidural will give her some coverage but not to the same extent. Post-procedure Anesthesia time START: 16:50 Anesthesia time END: 22:58 Post-procedure Anesthesia Assessment: Yes CV function: HR/BP stable, Yes Resp function: RR/sat/airway adequate, Yes Post-op hydration adequate, Yes Pain control adequate, Yes Nausea & vomiting absent, Yes Temperature > 36 C and Yes Mental status appropriate
[2023-09-29] MEDS: CALCIUM CARBONATE 500 MG TAB 1000 MG PO (20:15)
[2023-09-29 21:35] VITALS: BP 135/79; PULSE 100
--- NOTE | 2023-09-29 23:23 | PM.OBPRVD ---
Events: Meconium Stained Fluid and Other (Chronic Hypertension) Labor & Delivery Delivery date: 09/29/23 Intrapartal Events: None Cervical ripening method: per misoprostal protocol Induction method: per pitocin protocol Delivery augmentation: rupture of membranes Delivery monitor: external FHT and external uterine Route of delivery: Episiotomy description: None L&D Laceration Description: None Estimated blood loss (mL): 150 Anesthesia Type: Epidural Complications: None Narrative: Following a very brief 2nd stage, the patient delivered spontaneously a viable female infant over an intact perineum. No shoulder dystocia or cord entanglement was noted at the time of delivery. Skin to skin contact was initiated immediately and delayed cord clamping performed. Once the umbilical cord was doubly clamped and cut, a specimen of cord blood was obtained for routine studies. The placenta was delivered with gentle cord traction and suprapubic countertraction. Inspection of the placenta showed it to be intact with a marginal insertion of a velamentous, three-vessel cord. Intravenous Pitocin was initiated immediately following placenta delivery and losses were quickly controlled. Inspection of the lower vagina and introitus showed no abrasions or lacerations. Pre-delivery and post-delivery sponge, instrument, and needle counts matched. Both mother and baby were in good condition at the conclusion of the delivery process. [place] Baby 1: Infant gender: Female Presentation: vertex Position: Right Occiput Anterior Placenta delivery description: Spontaneous Cord Vessel Description: 3 Vessels and Other (Marginal insertion with velamentous, three-vessel cord) score (1 min): 6 score (5 min): 8 weight: 7 lb 6.873 oz Plan for aftercare: Routine care
[2023-09-30] MEDS: IBUPROFEN 600 MG TABLET PO ×3 (03:17→23:37)
[2023-09-30] MEDS: CALCIUM CARBONATE 500 MG TAB 1000 MG PO (03:17)
[2023-09-30 06:41] LABS: Add Manual Diff / Slide Review NO; Basophils Absolute Auto 0 /uL (0-100); Basophils Percent Auto 0.2 % (0-2); Eosinophils Absolute Auto 100 /uL (0-450); Eosinophils Percent Auto 0.4 % (2-4); Hematocrit 34.7 % (36-46); Hemoglobin 12.1 g/dL (12.0-16.0); Lymphocytes Absolute Auto 1800 /uL (1100-4500); Lymphocytes Percent Auto 12.5 % (25-40); Mean Corpuscular Hemoglobin 31.6 PG (26-34); Mean Corpuscular Volume 90.1 fL (80-100); Monocytes Absolute Auto 1000 /uL (0-900); Monocytes Percent Auto 6.8 % (3-14); Neutrophils Absolute Auto 11200 /uL (1500-7000); Neutrophils Percent Auto 80.1 % (50-75); Platelet Count 248 X10^3/uL (150-400); Red Blood Cell Count 3.85 X10^6/uL (4.0-5.2)
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
[2023-09-30 10:02] VITALS: BP 156/97; PULSE 112
[2023-09-30] MEDS: LABETALOL 100 MG TABLET 200 MG PO ×3 (10:02→20:58)
[2023-09-30] MEDS: DOCUSATE 100 MG CAPSULE PO ×2 (10:03→20:58)
--- NOTE | 2023-09-30 11:29 | CM.SWNOTE ---
CRYPTOLOGIC SUPERVISOR Note This CRYPTOLOGIC SUPERVISOR requested for consult to assess needs and assist in safety planning for this 33 yo F and baby girl Steinberg born 09/29/2023. Mom's toxicology + for Meth, Ecstasy and THC. According to a conversation this morning with Fire Crew Worker Diane Rogers, patient left the hospital yesterday evening, with permission from staff, stating she wanted to smoke. Dr Millan attempted to waken mom this morning and mom was very difficult to arouse per report. In addition, baby girl was found with her blanket covering her face. center staff placed call to CPS. Mom Maryan asking this CRYPTOLOGIC SUPERVISOR and nursing staff this morning if she can leave the Center, explained that according to [facility] policy, patients who are admitted for medical attention cannot leave the premises unless they are discharged from their provider or leave against medical advice (AMA), at which time AMA paperwork needs to be signed by patient. Mom has not been discharged from provider. Mom stated understanding and returned to her room where her partner and FOB, John was holding baby girl. This CRYPTOLOGIC SUPERVISOR met with mom and FOB with BC Director Diane, introduced self and role. Reiterated many times that in order for mom to leave she would need to be either discharged or leave AMA. Mom and FOB state understanding. Reviewed with mom and FOB that staff had concerns about mom leaving the BC last night to smoke and had returned in a sleepy and difficult to arouse state. This, in addition to a +tox screen was grounds to discuss CPS referral and what mom/FOB envisioned as their next steps in the safety plan for baby girl. Mom and FOB immediately became defensive, mom stated she was tired from just giving . FOB denied any drug use. Mom also denied drug use and asked what can pop a false positive for meth and ecstasy on a tox screen. Mom admits to meth use 5 years ago. Psychosocial assessment: Mom and FOB have been living together for [address] years [address] [place] [facility] family [place]. Mom and FOB plan to care for baby with assistance from their family. 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 Both are insured with [employer]. Mom has a 12 and 9 yo who are currently living with maternal grandma in [place]. Mom denies hx with CPS, stays her kids are living with her mom ever since I split with my ex who is now . Impression: Mom and FOB defensive this visit and do not appear or sound forthcoming with information for this CRYPTOLOGIC SUPERVISOR and Director. Additional safety planning required before baby girl is discharged, Dr Millan has placed baby girl on a medical hold. SW team will need to follow closely with BC staff and with CPS assigned worker for coordination. Next Steps: Placed call to CPS. Intake had shared that the first call (by BC RN) had screened in and this incident, Intake # [id number] had been sent to the field office in preparation for this case to be assigned to a CPS investigator internal revenue. Awaiting communication from CPS, updated staff. BONITA Giordano
[2023-09-30 11:40] VITALS: BP 131/67; PULSE 81
--- NOTE | 2023-09-30 13:22 | P.PNOB_ITS ---
Subjective - OB Subjective Patient comments: no complaints [place] baby status: doing well; no nursing well (Latching issues) [place] feeding status: pumping and bottle feeding Interval history: The patient has done well overnight and has no complaints or concerns this morning. Bleeding is minimal. Unfortunately patient's UDS is positive for methamphetamine and ecstasy therefore is under CPS hold. Exam Vital Signs (past 8 hours): - 09/30/23 10:02 Pulse Rate 112 H Blood Pressure 156/97 H HENMT Head: normal to inspection, normocephalic and atraumatic Eyes General: appearance normal, both eyes and all related structures Resp Effort & Inspection: normal respiratory effort and able to speak in complete sentences GI Inspection: normal to inspection Palpation: soft and no hepatosplenomegaly Uterus Location (Fundal Height): 20 Extrem Right lower extremity: normal to inspection Left lower extremity: normal to inspection Objective Labs 09/30/23 06:25 09/28/23 21:30 Labs: Laboratory Results - last 24 hr 09/30/23 06:25 WBC 14.0 H RBC 3.85 L Hgb 12.1 Hct 34.7 L MCV 90.1 MCH 31.6 MCHC 35.0 RDW 13.0 Plt Count 248 Neut % (Auto) 80.1 H Lymph % (Auto) 12.5 L [place] % (Auto) 6.8 Eos % (Auto) 0.4 L Baso % (Auto) 0.2 Neut # (Auto) 52477 H Lymph # (Auto) 1800 [place] # (Auto) 1000 H Eos # (Auto) 100 Baso # (Auto) 0 Assessment & Plan Plan day: 1 plan OB: routine care Comments: will remain in the hospital until cleared for release by CPS. Confirmatory UDS and meconium testing on the are pending Time Spent With Patient Time: Total time spent is greater than 50% in coordination of care (as documented) at patient's floor/unit and/or counseling patient: Time with patient: 15-24 minutes
[2023-09-30 15:03] VITALS: BP 180/87; PULSE 107
[2023-09-30] MEDS: NICOTINE 14 PATCH 14 MG TOP (15:46)
[2023-09-30 16:00] VITALS: BP 158/89; PULSE 105
[2023-09-30 20:58] VITALS: BP 157/87; PULSE 83
[2023-09-30] MEDS: LANOLIN OINT 7 GM 1 APPLIC TOP (20:58)
[2023-09-30 22:00] VITALS: BP 136/73; PULSE 81
[2023-09-30] MEDS: ACETAMINOPHEN 325 MG TABLET 650 MG PO (23:37)
[2023-10-01 09:20] VITALS: BP 151/89; PULSE 101
[2023-10-01] MEDS: ACETAMINOPHEN 325 MG TABLET 650 MG PO ×2 (09:20→15:37)
[2023-10-01] MEDS: LABETALOL 100 MG TABLET 200 MG PO (09:20)
[2023-10-01] MEDS: IBUPROFEN 600 MG TABLET PO ×2 (09:21→15:37)
[2023-10-01] MEDS: DOCUSATE 100 MG CAPSULE PO (09:21)
--- NOTE | 2023-10-01 11:39 | PM.OBDS.1 ---
Discharge Providers Provider Date of admission: 09/28/23 20:15 Discharge Date: 10/01/23 Primary care physician: Riri Burgos MD Consults: 09/28/23 20:55 Consult to Anesthesiology Urgent Comment: Consulting Provider: Pa Ordaz Reason for consultation: Epidural Has provider been notified: No 09/30/23 08:17 Consult to ALTERATIONS WORKROOM CLERK - Welding Machine Operator Thermit Routine Comment: mom positive drug screen 09/30/23 23:12 Consult to Senior Validation Engineer Routine Comment: Discharge provider: Stacy Muñoz DO Summary Hospital Course Date Patient Seen: 10/01/23 Time Patient Seen: 11:39 Diagnoses: Burroughs intrauterine gestation at 39+4wks, delivered via Chronic hypertension Group B strep carrier Maternal drug use Hospital Course: 33yo [id number] admitted at 39+3wks for induction of labor for chronic hypertension. Her labor course was uncomplicated, and she progressed to a spontaneous vaginal delivery. During her hospital admission, was noted to have a positive urine drug screen for methamphetamines, marijuana, and ecstasy. CPS was involved in her case. Her course was notable for mild-severe range blood pressures, on labetalol 200mg TID. She denied headaches, vision changes, right upper quadrant pain, chest pain, or shortness of breath. Peripartum Data Delivery Method: Natural Vaginal Laceration Description: None Procedures: External monitoring Epidural anesthesia Spontaneous vaginal delivery complications: none Discharge Diagnosis (1) Hypertension affecting : Status: Acute Problem Details: Blood pressure primarily mild range, on labetalol 200mg TID. Labs rechecked 10/01 notable for AST of 37 (however not 2x normal), no ALT was drawn. Otherwise normal creatinine and platelets. BP prior to discharge was 143/88. -will increase labetalol to 300mg TID -f/u with PCM on Wednesday for BP check (2) Vaginal delivery: Status: Acute (3) Maternal drug use complicating , antepartum: Status: Acute Status at Discharge Cognitive/behavioral status at discharge: oriented Functional status at discharge: independent ambulation Overall status at discharge: patient is back to baseline Time Spent with Patient Time attestation: Total time spent providing and/or coordinating discharge services: Time spent: Greater than 30 minutes Objective Labs 10/01/23 11:55 10/01/23 11:55 Exam Vital Signs (past 8 hours): - 10/01/23 09:20 Pulse Rate 101 H Blood Pressure 151/89 H Narrative Exam Narrative: vitals reviewed in OBIX last 24hrs: BP 131-160/69-118, P 81-107, R 16-18, T 97-98.9 Const General: cooperative, healthy appearing, comfortable and No acute distress Resp Effort & Inspection: normal respiratory effort GI Inspection: normal to inspection Other: fundus firm and nontender at U-2 Skin General: no rashes or lesions noted Neuro General: patient alert and patient awake Extrem General: normal to inspection, no pedal edema and no calf tenderness Psych Mood: congruent mood Affect: normal affect Discharge Plan Discharge Plan Patient Disposition: Home Provider Discharge Comment: Please follow-up for a blood pressure check on Thursday 10/04. You should also follow-up at 2 weeks with your primary OB provider. Please review the written instructions you received when you were discharged from the hospital. If however in the meanwhile you have any questions, concerns, or issues, please contact me either through the office phone at [phone], or via the patient portal. Discharge orders & Medications Prescriptions: New labetalol 100 mg Tablet 300 mg PO TID Qty: 60 2RF Continued vit-iron fum-folic ac [ Vitamin with Minerals] 28 mg iron- 800 mcg tablet 1 tab PO DAILY Qty: 90 3RF Discontinued ondansetron 4 mg tablet,disintegrating 4 mg PO Q6-8H PRN (Reason: nausea and vomiting) Qty: 20 2RF Follow up/Referrals: Pa Ordaz MD [Physician] - (6 week Postparum Appt w/ Dr. Ordaz: @ 2:30pm Please check your Blood pressure on Thursday 10/04 and report it to your Doctor's office) Discharge Health Status Multidrug resistant organism: No MDRO Diet/Activity/Treatments Diet: Diet as Tolerated Activity: Nothing in the vagina for 6 weeks. Other treatments: [id number] Tylenol and/or ibuprofen may be used for additional pain relief. [id number]-[id number] stool softener and/or MiraLax may be used as needed Skin/Wound/Dressing Care Report to your healthcare provider any signs of infection, such as:: chills, fever, increased pain, unusual drainage and unusual redness Dressing: N/A Visit Report/Discharge Packet Instructions: DI for Labor and Delivery, Vaginal , DI for and Nipple Soreness Stand Alone Forms: Discharge: Care Discharge Data Primary Care Provider: Riri Burgos
[2023-10-01 12:11] LABS: Add Manual Diff / Slide Review NO; Basophils Absolute Auto 0 /uL (0-100); Basophils Percent Auto 0.2 % (0-2); Eosinophils Absolute Auto 100 /uL (0-450); Eosinophils Percent Auto 0.6 % (2-4); Hematocrit 36.5 % (36-46); Hemoglobin 12.7 g/dL (12.0-16.0); Lymphocytes Absolute Auto 1000 /uL (1100-4500); Lymphocytes Percent Auto 8.9 % (25-40); Mean Corpuscular HGB Conc 34.8 % (30-36); Mean Corpuscular Hemoglobin 31.7 PG (26-34); Mean Corpuscular Volume 91.1 fL (80-100); Monocytes Absolute Auto 600 /uL (0-900); Monocytes Percent Auto 5.3 % (3-14); Neutrophils Absolute Auto 10000 /uL (1500-7000); Platelet Count 258 X10^3/uL (150-400); Red Blood Cell Count 4.01 X10^6/uL (4.0-5.2); Red Cell Distribution Width 13.1 % (11.6-14.8); White Blood Cell Count 11.8 X10^3/uL (4.5-11.0)
[2023-10-01 12:25] LABS: Aspartate Aminotransferase 37 IU/L (14-36); BUN Creatinine Ratio 18.9 (6-22); Blood Urea Nitrogen 10 mg/dL (7-17); Estimated Glomerular Filt Rate > 60 mL/min (>60); Uric Acid 4.5 mg/dL (2.5-6.2)
[2023-10-01 13:13] VITALS: BP 155/89
[2023-10-01] MEDS: LABETALOL 100 MG TABLET PO (13:13)
[2023-10-01 14:30] VITALS: BP 143/84; PULSE 101; RESP 16; TEMP 36.8
[2023-10-01] MEDS: LABETALOL 100 MG TABLET 300 MG PO (15:38)
[2023-10-06 10:43] LABS: Amphetamines Negative (Cutoff=500)
== END 2023-10-01 16:30 | disposition home or self-care (01) | DRG 560 ==
PROVIDERS: Student in an Organized Health Care Education/Training Program; Admitting Provider Obstetrics & Gynecology; Family Provider Family Medicine; PCP Family Medicine; Referring Provider Obstetrics & Gynecology; Visit Provider Obstetrics & Gynecology
DX: O16.4 Unspecified maternal hypertension, complicating childbirth (principal); Z3A.39 39 weeks gestation of pregnancy; O99.324 Drug use complicating childbirth; Z37.0 Single live birth; F19.90 Other psychoactive substance use, unspecified, uncomplicated; F12.90 Cannabis use, unspecified, uncomplicated; F17.210 Nicotine dependence, cigarettes, uncomplicated
CPT/HCPCS: 36415; 59050; 59200; 59409; 80305; 80324; 80349; 84450; 84550; 85025; 86850; 86900; 86901; 87491; 87591; G0379; J2590